=== PATIENT | male | born 1960 | race Caucasian/White ===

== ENCOUNTER 2021-03-26 06:35 | Inpatient (IN) ==
[2021-03-26] MEDS ORDERED: D5% in Water 1,000 ML IVC PRN (09:29)
[2021-03-26] MEDS ORDERED: *HR* Dextrose 50 % in Water (Vial) 50 ML VIAL IVP PRN (09:29)
[2021-03-26] MEDS ORDERED: Acetaminophen 325 MG TABLET PO PRN (09:29)
[2021-03-26] MEDS ORDERED: Ondansetron 4 MG/2 ML VIAL IVP PRN (09:29)
[2021-03-26] MEDS ORDERED: Naloxone 0.4 MG/ML INJ IVP PRN (09:29)
[2021-03-26] MEDS ORDERED: Dextrose Gel 15 GM/37.5 ML TUBE PO PRN ×2 (09:29)
[2021-03-26] MEDS ORDERED: 0.9 % Sodium Chloride 2,000 ML ONE (09:52)
[2021-03-26] MEDS ORDERED: Nitroglycerin 1,000 MCG/5 ML VIAL IV ONE ×2 (09:53→10:50)
[2021-03-26] MEDS ORDERED: *HR* Heparin 10,000 UNIT/10 ML VIAL ONE (09:53)
[2021-03-26] MEDS ORDERED: Heparin 1,000 UNITS/500 mL 500 ML ONE (09:53)
[2021-03-26] MEDS ORDERED: ISOVUE-370 200 ML INFUS..BTL ONE ×2 (09:53→10:52)
[2021-03-26] MEDS ORDERED: *HR* Midazolam HCl 2 MG/2 ML VIAL ONE (10:20)
[2021-03-26] MEDS ORDERED: *HR* FentaNYL (PF) 100 MCG/2 ML VIAL ONE (10:21)
[2021-03-26] MEDS ORDERED: *HR* Bivalirudin 250 MG VIAL IVC ONE (10:36)
[2021-03-26] MEDS ORDERED: *HR* Ticagrelor 90 MG TABLET ONE (10:45)
[2021-03-26] MEDS ORDERED: 0.9 % Sodium Chloride 1,000 ML IVC SCH (11:15)
[2021-03-26] MEDS: Nitroglycerin 0.4 MG TAB.SUBL SL PRN ×2 (13:53→14:03)
[2021-03-26] MEDS: Insulin LISPRO 300 UNITS/3 ML VIAL SUBQ SCH ×2 (13:55→18:08)
[2021-03-26] MEDS ORDERED: Metoprolol XL (24 HR) Succ 25 MG TAB.ER.24H PO SCH (18:00)
[2021-03-26] MEDS: *HR* Ticagrelor 90 MG TABLET PO SCH (20:20)
[2021-03-27] MEDS: Insulin LISPRO 300 UNITS/3 ML VIAL SUBQ SCH ×5 (00:05→16:35)
[2021-03-27 05:15] LABS: Basophils % 0.2 %; Eosinophils % 0.5 %; Hematocrit 36.8 % (37.5-50.1); Hemoglobin 12.1 g/dL (12.9-16.9); Immature Granulocytes % 0.1 % (0-4); Lymphocytes # 1.3 K/mcL (0.6-4.6); Lymphocytes % 15.6 %; Mean Corpuscular HGB Conc 32.9 g/dL (31.6-35.5); Mean Corpuscular Hemoglobin 27.8 pg (28.0-33.3); Mean Corpuscular Volume 84.6 fL (83.0-100.0); Mean Platelet Volume 11.3 fL (9.4-12.4); Neutrophils # 6.1 K/mcL (1.6-8.9); Platelet Count 198 K/mcL (140-400); Red Blood Count 4.35 M/mcL (4.19-5.50); Red Cell Distribution Width 12.9 % (11.5-14.5); Segmented Neutrophils % 71.6 %; White Blood Count 8.6 K/mcL (4.3-11.1)
[2021-03-27 05:36] LABS: Chol/HDL Ratio 3.7 (0-4.9); Potassium 4.2 mEq/L (3.5-5.1)
[2021-03-27 05:39] LABS: Troponin I 50.64 ng/mL (< 0.04)
[2021-03-27] MEDS: *HR* Ticagrelor 90 MG TABLET PO SCH ×2 (07:13→21:14)
[2021-03-27] MEDS: Aspirin 81 MG TAB.CHEW PO SCH (07:13)
[2021-03-27] MEDS ORDERED: amLODIPine 5 MG TABLET PO SCH (08:00)
[2021-03-27] MEDS: SUBCUTANEOUS INSULIN PUMP SQ SCH (08:24)
[2021-03-27] MEDS ORDERED: lisinopriL 5 MG TABLET PO SCH (09:00)
[2021-03-27] MEDS ORDERED: 0.9 % Sodium Chloride 1,000 ML IVC SCH (09:30)
[2021-03-27] MEDS ORDERED: Perflutren Lipid Microsphere 1.3 ML in 0.9 % Sodium Chloride 8.7 ML IVP PRN (14:53)
[2021-03-28] MEDS: *HR* Ticagrelor 90 MG TABLET PO SCH (07:18)
[2021-03-28] MEDS: Aspirin 81 MG TAB.CHEW PO SCH (07:18)
[2021-03-28] MEDS: Insulin LISPRO 300 UNITS/3 ML VIAL SUBQ SCH ×2 (07:22→11:26)
[2021-03-28] MEDS: SUBCUTANEOUS INSULIN PUMP SQ SCH (07:28)
[2021-03-28 07:32] VITALS: BP 148/78; TEMP 98.7
[2021-03-28 08:42] VITALS: PULSE 70; O2SAT 93
[2021-03-28 08:59] LABS: BUN/Creatinine Ratio 17 (6-26); Blood Urea Nitrogen 24 mg/dL (6-20); Calcium 8.6 mg/dL (8.6-10.3); Carbon Dioxide 20 mEq/L (23-29); Chloride 102 mEq/L (98-107); Glucose 393 mg/dL (70-105); Osmolality,Calculated 294 (280-300); Potassium 4.4 mEq/L (3.5-5.1); Sodium 132 mEq/L (136-145); eGFR For African Americans > 60 (> 60); eGFR For Non-African Americans 50 (> 60)
[2021-03-28] MEDS ORDERED: amLODIPine 5 MG TABLET PO SCH (21:00)
== END 2021-03-28 13:07 | disposition home or self-care (01) | DRG 175 ==
LOC: 3BNU → ICNU 11:40
PROVIDERS: ADMIT Family Medicine; ATTEND Family Medicine